=== PATIENT | female | born 1965 | race Caucasian/White ===

== ENCOUNTER → 2017-04-06 | Outpatient (CLI) | payer MEDICARE ==
--- NOTE | ~2017-04-06 | ECH ---
Transthoracic Echocardiography Report (TTE) Demographics Patient Name RABIA CORTES Date of Study 04/06/2017 Patient Number [id number] Visit Number [id number] Date of 1965 Room Number Accession Number [id number] Gender Female Age 51 year(s) Referring Rohit Schwab MD Pheresis Specialist Loree Anglin [facility] Physician Physician Bayron Choudhury MD Chief Information Security Officer Physician Richar Supervising Ordering Physician Tim Gonzalez MD/MLP Nurse Stress Insurance Actuary Conclusions Contractility Score Summary Normal Left Ventricular contractility was noted. Summary Technically adequate exam. The estimated left ventricular ejection fraction is 55-60%. Normal right ventricle structure and function. The left atrium is mildly dilated by LA volume index measurement. The right atrium is mildly dilated. Mild tricuspid regurgitation by color Doppler. Estimated pulmonary pressures within normal range. Recommendation The patient will be given the results of this study by the physician who ordered the exam. Procedure Type of Study TTE procedure:Echo Complete SF. Procedure Date Date: 04/06/2017 Start: 01:07 PM Technical Quality: Fair due to body habitus. Indications:Pulmonary hypertension. Additional Indications:mixed connective tissue disease Appropriate Use Criteria: 9 Height: 68 inches Weight: 265 pounds BSA: 2.3 m Rhythm: Sinus bradycardia HR: 57 bpm BP: 95/45 mmHg M-Mode/2D Measurements LV Diastolic Dimension: 4.69 cm LV Systolic Dimension: 2.91 cm LV Septum Diastolic: 0.87 cm LV PW Diastolic: 0.85 cm AO Root Dimension: 2.19 cm Cardiac Output: 3.59 l/min LA Dimension: 3.83 cm Cardiac Index: 1.56 l/min*m RV Diastolic Dimension: 2.69 cm LA volume index: 36 ml/m LVOT: 1.73 cm LVOT VTI: 26.81 cm RV Base: 3.39 cm LV Stroke volume: 62.99 ml RV Mid: 1.86 cm LV Stroke volume index: 27.39 ml/m RV Length: 6.27 cm TAPSE: 2.8 cm TDI-S': 12 cm/s Doppler Measurements AV Peak Velocity: 1.5 m/s MV Peak E-Wave: 0.91 m/s AV Peak Gradient: 9 mmHg MV Peak A-Wave: 0.58 m/s AV Mean Gradient: 5.02 mmHg MV E/A Ratio: 1.57 LVOT Peak Velocity: 1.22 m/s MV P1/2t: 56.5 msec AV Area (Continuity):1.94 cm MV Deceleration Time: 194.8 msec TR Velocity:2.53 m/s MV Area (PHT): 3.9 cm TR Gradient:25.6 mmHg PV Peak Velocity: 1.06 m/s Estimated RAP:3 mmHg PV Peak Gradient: 4.49 mmHg Estimated RVSP: 29 mmHg Estimated PASP: 28.6 mmHg RA Area: 23.63 cm Findings Left Ventricle The left ventricle is normal in size . Diastolic assessment reveals normal relaxation. Right Ventricle Normal right ventricle structure and function. Left Atrium The left atrium is mildly dilated by LA volume index measurement. Right Atrium The right atrium is mildly dilated. Mitral Valve Normal mitral valve structure and function. Trivial mitral regurgitation by color Doppler. Aortic Valve Normal aortic valve structure and function. Tricuspid Valve Normal tricuspid valve structure and function. Mild tricuspid regurgitation by color Doppler. Estimated pulmonary pressures within normal range. Pulmonic Valve Normal pulmonic valve structure and function. Pericardial Effusion No evidence of pericardial effusion. Miscellaneous Visualized portions of the aortic root and ascending aorta appear normal in size. Pleural Effusion No evidence of pleural effusion. Contractility Score LV regional wall motion:(0-Non visualized 1-Normal 2-Hypokinesis 3-Akinesis 4-Dyskinesis 5-Aneurysm) Signature
== END | disposition home or self-care (01) ==
LOC: CARD 12:42
DX: I27.2 Other secondary pulmonary hypertension (principal); I07.1 Rheumatic tricuspid insufficiency; I51.7 Cardiomegaly; M35.1 Other overlap syndromes